=== PATIENT | female | born 1960 | race Caucasian/White ===

== ENCOUNTER 2017-02-10 11:32 | Observation (INO) | payer SELFPAY ==
[~2017-02-10] VITALS: Ht 160 cm; Wt 79.0 kg
[~2017-02-10 11:32] MED LIST: IMITREX50 MG PO; LAXATIVE FORMULA PO; LEVOTHYROXIN100 MC1 PO; LEVOTHYROXIN125 MC1 PO; LEVOTHYROXIN150 MCG PO; LEVOTHYROXINE100 MCG PO; SUMATRIPTAN SU100 MG PO; VICOPROFEN OR
[2017-02-10] MEDS ORDERED: PLAVIX75 MG PO (11:49)
[2017-02-10] MEDS ORDERED: ASPIRINCHW 81MG PO (11:49)
[2017-02-10 11:59] LABS: HEMOGLOBIN 13.8 g/dl (12.0-16.0); IMMATURE GRANULOCYTES 0.3 % (0.0-1.0); MEAN CELL VOLUME 92.1 fL CALC (80.0-100.0); MEAN CORPUSCULAR HGB 30.3 pG CALC (26.0-32.0); MEAN CORPUSCULAR HGB CONC 32.9 g/L CALC (32.0-36.0); NEUT# 4.6 thou/uL (2.00-7.15); RED BLOOD COUNT 4.56 mill/uL (4.20-5.60); RED CELL DISTRI WIDTH 14.2 % (11.5-15.5)
[2017-02-10 12:06] LABS: INTERNATIONAL NORMALIZED RATIO 0.9 RATIO (0.7-1.3); PROTHROMBIN TIME 10.2 SECONDS (9.0-12.5)
[2017-02-10 12:10] LABS: ALBUMIN 4.3 g/dL (3.2-5.0); ALKALINE PHOSPHATASE 100 u/l (38-126); AMYLASE 75 u/l (30-110); ANION GAP 14 (6-22 (CALC)); BILIRUBIN, TOTAL 0.4 mg/dL (0.0-1.4); BUN 18 mg/dL (7-17); BUN/CREATININE RATIO 22 (12-20 (CALC)); CALCIUM 9.6 mg/dL (8.4-10.2); CARBON DIOXIDE 25 mmol/l (22-30); CHLORIDE 107 mmol/l (95-108); CREATININE 0.8 mg/dL (0.5-1.0); GFR > 60 ML/MIN (>=60 (CALC)); GFR FOR AFR.AMER. > 60 ML/MIN (>=60 (CALC)); GLUCOSE 93 mg/dL (65-105); LIPASE 162 u/l (23-300); POTASSIUM 4.2 mmol/l (3.5-5.1); SGOT/AST 12 u/l (14-36); SGPT/ALT 33 u/l (9-52); SODIUM 141 mmol/l (137-146); TOTAL PROTEIN 7.6 g/dL (6.3-8.2)
[2017-02-10 12:22] LABS: MYOGLOBIN 17 ng/mL (0 - 62)
[2017-02-10 13:15] LABS: URINE BILIRUBIN - DIPSTICK NEGATIVE (NEGATIVE); URINE BLOOD DIPSTICK TRACE-INTACT (NEGATIVE); URINE CLARITY CLEAR; URINE COLOR YELLOW; URINE GLUCOSE - DIPSTICK NEGATIVE (NEGATIVE); URINE KETONE NEGATIVE (NEGATIVE); URINE LEUK ESTERASE NEGATIVE (NEGATIVE); URINE NITRITE - DIPSTICK NEGATIVE (Negative); URINE PH 5.5 (4.5-8.0); URINE PROTEIN - DIPSTICK NEGATIVE (NEG-TRACE); URINE UROBILINOGEN - DIPSTICK 0.2 E.U./dL (0.2)
[2017-02-10 15:32] LABS: BARBITURATES NEGATIVE (NEGATIVE); COCAINE NEGATIVE (NEGATIVE); METHADONE NEGATIVE (NEGATIVE); OXCYCODONE NEGATIVE (NEGATIVE); TETRAHYDROCANNABIONOL NEGATIVE (NEGATIVE); TRICYLIC ANTIDEPRESSANTS NEGATIVE (NEGATIVE)
[2017-02-10 15:45] VITALS: BP 142/82
[2017-02-10 19:05] VITALS: BP 122/75
[2017-02-10 23:30] VITALS: BP 103/60
[2017-02-11 04:35] VITALS: BP 101/63
[2017-02-11 07:02] LABS: ANION GAP 14 (6-22 (CALC)); BUN 11 mg/dL (7-17); BUN/CREATININE RATIO 15 (12-20 (CALC)); CALCIUM 9.3 mg/dL (8.4-10.2); CALCULATED LDLCHOLESTEROL 140 mg/dL (62-129 (CALC)); CARBON DIOXIDE 24 mmol/l (22-30); CHLORIDE 107 mmol/l (95-108); CREATININE 0.7 mg/dL (0.5-1.0); GFR > 60 ML/MIN (>=60 (CALC)); GFR FOR AFR.AMER. > 60 ML/MIN (>=60 (CALC)); GLUCOSE 82 mg/dL (65-105); HDL CHOLESTEROL 76 mg/dL (>=40); POTASSIUM 3.9 mmol/l (3.5-5.1); SODIUM 140 mmol/l (137-146); TOTAL CHOLESTEROL 264 mg/dl (0-199); TOTAL TRIGLYCERIDES 238 mg/dl (30-149); VLDL CHOLESTROL 48 mg/dl (2-49 (CALC))
[2017-02-11 08:19] VITALS: BP 114/76
[2017-02-11 11:10] VITALS: BP 113/70
[2017-02-11 15:46] VITALS: BP 97/64
[2017-02-11] MEDS ORDERED: NITROSTAT0.4 MG SL (16:54)
== END 2017-02-11 17:32 | disposition home or self-care (01) | DRG 313 ==
LOC: ENPENDDIS → ED 11:32 → ED-I 14:02 → ED 14:25 → MS2 14:26
PROVIDERS: Emergency Medicine; ADMIT Internal Medicine; ATTEND Internal Medicine
DX: R07.89 Other chest pain (principal); I25.10 Atherosclerotic heart disease of native coronary artery without angina pectoris; I10 Essential (primary) hypertension; E03.9 Hypothyroidism, unspecified; E78.5 Hyperlipidemia, unspecified; F41.9 Anxiety disorder, unspecified; Z95.5 Presence of coronary angioplasty implant and graft; Z87.442 Personal history of urinary calculi; Z87.891 Personal history of nicotine dependence
CPT/HCPCS: G0378

== ENCOUNTER 2017-09-29 00:46 | Observation (INO) | payer OTHER ==
[~2017-09-29] VITALS: Ht 160 cm; Wt 82.8 kg
[~2017-09-29 00:46] MED LIST changes: +ASPIRINCHW 81MG PO; +NITROSTAT0.4 MG SL; +PLAVIX75 MG PO
[2017-09-29 01:22] LABS: HEMATOCRIT 47.5 % (37.0-47.0); HEMOGLOBIN 16.1 g/dl (12.0-16.0); IMMATURE GRANULOCYTES 0.4 % (0.0-1.0); MEAN CELL VOLUME 89.5 fL CALC (80.0-100.0); MEAN CORPUSCULAR HGB 30.3 pG CALC (26.0-32.0); MEAN CORPUSCULAR HGB CONC 33.9 g/L CALC (32.0-36.0); NEUT# 3.72 thou/uL (2.00-7.15); RED BLOOD COUNT 5.31 mill/uL (4.20-5.60); RED CELL DISTRI WIDTH 12.8 % (11.5-15.5)
[2017-09-29 01:34] LABS: ALBUMIN 5.4 g/dL (3.2-5.0); ALKALINE PHOSPHATASE 120 u/l (38-126); ANION GAP 21 (6-22 (CALC)); BILIRUBIN, TOTAL 0.7 mg/dL (0.0-1.4); BUN 19 mg/dL (7-17); BUN/CREATININE RATIO 18 (12-20 (CALC)); CALCIUM 10.1 mg/dL (8.4-10.2); CARBON DIOXIDE 22 mmol/l (22-30); CHLORIDE 100 mmol/l (95-108); GFR 57 ML/MIN (>=60 (CALC)); GFR FOR AFR.AMER. > 60 ML/MIN (>=60 (CALC)); GLUCOSE 117 mg/dL (65-105); LIPASE 151 u/l (23-300); POTASSIUM 3.9 mmol/l (3.5-5.1); SGOT/AST 20 u/l (14-36); SGPT/ALT 33 u/l (9-52); SODIUM 139 mmol/l (137-146); TOTAL PROTEIN 9.4 g/dL (6.3-8.2)
[2017-09-29 01:40] LABS: D-DIMER 0.21 mg/L (0.19-0.60); PROTHROMBIN TIME 10.7 SECONDS (9.0-12.5)
[2017-09-29] MEDS ORDERED: PRAVACHOL20 MG PO (02:54)
[2017-09-29] MEDS ORDERED: CO Q-10200 MG PO (02:55)
[2017-09-29 03:05] VITALS: BP 111/61
[2017-09-29] MEDS ORDERED: LISINOP/HCTZ1 TA2 PO (03:05)
[2017-09-29 07:37] VITALS: BP 110/73
[2017-09-29 08:27] LABS: CHOLESTEROL HDL RATIO 3.3 (<4.4 (CALC))
[2017-09-29 09:39] LABS: URINE BILIRUBIN - DIPSTICK NEGATIVE (NEGATIVE); URINE BLOOD DIPSTICK NEGATIVE (NEGATIVE); URINE COLOR YELLOW; URINE GLUCOSE - DIPSTICK NEGATIVE (NEGATIVE); URINE KETONE NEGATIVE (NEGATIVE); URINE LEUK ESTERASE NEGATIVE (NEGATIVE); URINE NITRITE - DIPSTICK NEGATIVE (Negative); URINE PROTEIN - DIPSTICK NEGATIVE (NEG-TRACE); URINE SPECIFIC GRAVITY <=1.005; URINE UROBILINOGEN - DIPSTICK 0.2 E.U./dL (0.2)
[2017-09-29 09:40] LABS: URINE CLARITY CLEAR
[2017-09-29] MEDS ORDERED: LISINOPRIL20 MG PO (11:40)
[2017-09-29] MEDS ORDERED: NORVASC5 M1 PO (11:40)
== END 2017-09-29 13:24 | disposition home or self-care (01) | DRG 313 ==
LOC: ED 00:46 → ED-I 02:10 → ED 02:29 → MS2 02:30
PROVIDERS: Emergency Medicine; Nurse Practitioner Family; ADMIT Internal Medicine; ATTEND Internal Medicine
DX: R07.9 Chest pain, unspecified (principal); E86.0 Dehydration; R53.1 Weakness; R11.0 Nausea; R19.7 Diarrhea, unspecified; R61 Generalized hyperhidrosis; T46.4X5A Adverse effect of angiotensin-converting-enzyme inhibitors, initial encounter; I25.10 Atherosclerotic heart disease of native coronary artery without angina pectoris; T50.2X5A Adverse effect of carbonic-anhydrase inhibitors, benzothiadiazides and other diuretics, initial encounter; E03.9 Hypothyroidism, unspecified; I10 Essential (primary) hypertension; E89.2 Postprocedural hypoparathyroidism; Z95.5 Presence of coronary angioplasty implant and graft; Z87.442 Personal history of urinary calculi; Z87.891 Personal history of nicotine dependence; E78.5 Hyperlipidemia, unspecified; Z68.32 Body mass index [BMI] 32.0-32.9, adult
CPT/HCPCS: G0378; J1650